=== PATIENT | female | born 1965 | race African-American/Black ===

== ENCOUNTER 2017-02-09 14:44 | Emergency (ER) | payer SELFPAY ==
[~2017-02-09] VITALS: Ht 172.7 cm; Wt 79.4 kg
--- NOTE | ~2017-02-09 | CR151 ---
[facility] A Service of [facility] & [facility] RADIOLOGY TEXT RESULTS PATIENT: FLYNN CARRASCO LOCATION: CFTX : 69 UNIT #: [id number] AGE: [address]: Aruna Knight APRN SEX: F ORDER DR: [id number] [facility] [address] [place], [place] [address] [id number] E MR#: [id number] Acc #: [id number] NAME: FLYNN CARRASCO : 1965 SEX: F STUDY DATE/TIME: 02/09/2017 15:28 UNIT: [facility] ROOM: STUDY DESCRIPTION: CR Hip Min 2 Views Rt Attending Physician: Aruna Knight A.P.R.N. Ordering Physician: Ed Doctor [id number] [facility] Primary Care Physician: Primary Care Physician No MEDICAL IMAGING REPORT This report is preliminary unless electronic signature is present EXAM 2 views right hip INDICATION Right hip pain for 3 months. FINDINGS No acute fracture or subluxation of the right hip is seen. Patient does appear to have some mild degenerative changes in the right hip which are slightly more pronounced than on the contralateral side. Sacroiliac joints appear well preserved. IMPRESSION Mild degenerative changes as noted above Dictated by... Celia Fields M.D. THIS IS AN ELECTRONICALLY VERIFIED REPORT Celia Fields M.D. at 02/10/2017 2:12 PM AFF/rnr TD: 02/09/2017 21:57 JOB #: [id number] MEDICAL IMAGING REPORT Page 1 of 1 COPY
--- NOTE | ~2017-02-09 | CR21 ---
[facility] A Service of [facility] & [facility] RADIOLOGY TEXT RESULTS PATIENT: FLYNN CARRASCO LOCATION: CFTX : 69 UNIT #: [id number] AGE: [address]: Aruna Knight APRN SEX: F ORDER DR: [id number] [facility] [address] [place], [place] [address] [id number] E MR#: [id number] Acc #: [id number] NAME: FLYNN CARRASCO : 1965 SEX: F STUDY DATE/TIME: 02/09/2017 15:22 UNIT: [facility] ROOM: STUDY DESCRIPTION: CR Ankle Min 3 Views Rt Attending Physician: Aruna Knight A.P.R.N. Referring Physician: Irineo De Paz M.D. Ordering Physician: Castro Walker M.D. Primary Care Physician: No Primary Care Physician MEDICAL IMAGING REPORT This report is preliminary unless electronic signature is present EXAM Three views of the right ankle. INDICATIONS Right ankle pain for one week. No known injury. FINDINGS AP, lateral, and oblique projections of the ankle show satisfactory integrity of the joint mortise with a smooth articular surface. There is no identifiable fracture, dislocation, or radiopaque foreign body. IMPRESSION Normal 3 views of right ankle. Dictated by... Celia Fields M.D. THIS IS AN ELECTRONICALLY VERIFIED REPORT Celia Fields M.D. at 02/10/2017 2:12 PM IRAIDA/john TD: 02/09/2017 21:57 JOB #: [id number] MEDICAL IMAGING REPORT Page 1 of 1 COPY
--- NOTE | ~2017-02-09 | CR169 ---
[facility] A Service of [facility] & [facility] RADIOLOGY TEXT RESULTS PATIENT: FLYNN CARRASCO LOCATION: CFTX : 69 UNIT #: [id number] AGE: [address]: Aruna Knight APRN SEX: F ORDER DR: [id number] [facility] [address] [place], [place] [address] [id number] E MR#: [id number] Acc #: [id number] NAME: FLYNN CARRASCO : 1965 SEX: F STUDY DATE/TIME: 02/09/2017 15:24 UNIT: [facility] ROOM: STUDY DESCRIPTION: CR Knee 2 Views Lt Attending Physician: Aruna Knight A.P.R.N. Ordering Physician: Ed Doctor [id number] [facility] Primary Care Physician: No Primary Care Physician MEDICAL IMAGING REPORT This report is preliminary unless electronic signature is present EXAM Two views of the left knee. INDICATIONS Left knee pain for 4 days. No known injury. The patient reports posterior knee pain radiating medially and laterally. FINDINGS No acute fracture or subluxation of the left knee is identified although the patient is noted to have a small suprapatellar effusion. There is no significant degenerative change. No aggressive osseous abnormalities are seen IMPRESSION Suspected small suprapatellar effusion. Otherwise unremarkable exam. Dictated by... Celia Fields M.D. THIS IS AN ELECTRONICALLY VERIFIED REPORT Celia Fields M.D. at 02/10/2017 2:12 PM AFF/ea TD: 02/09/2017 21:47 JOB #: [id number] MEDICAL IMAGING REPORT Page 1 of 1 COPY
[~2017-02-09 14:44] MED LIST: FLEXERIL PO; KETOPROFEN PO
== END 2017-02-09 16:30 | disposition home or self-care (01) ==
LOC: CED 14:44 → CFTX 14:44
DX: M25.462 Effusion, left knee (principal); M25.571 Pain in right ankle and joints of right foot; M25.551 Pain in right hip; F17.210 Nicotine dependence, cigarettes, uncomplicated
CPT/HCPCS: 73502; 73560; 73610; 99283